=== PATIENT | male | born 2000 | race Caucasian/White ===

== ENCOUNTER 2019-01-03 20:16 | Emergency (ER) | payer BC, SELFPAY ==
[2019-01-03 20:30] VITALS: BP 117/79; PULSE 55; RESP 16; TEMP 36.6; O2SAT 98
--- NOTE | 2019-01-03 20:50 | W.ED.GENAD ---
Discharge Plan Disposition Patient Disposition: HOME Condition: Stable Discharge Details Chief Complaint: RespSymp Clinical Impression: Cough Primary Care Provider: Cleveland Marcos ED Provider: Buddy Correa Home Meds and New Rx's Prescriptions: New benzonatate [Tessalon Perles] 100 mg capsule 100 mg PO TID PRN (Reason: cough) Qty: 30 RF: 0 No Action methylphenidate HCl [Concerta] 54 MG tablet extended release 24hr 54 mg PO DAILY RF: 0 Discharge Instructions Instructions: Acute Cough (ED) Additional Instructions: follow up with your primary care provider within 1-2 weeks especially if symptoms continue if you feel more ill, are having high fevers or having difficulty breathing return to the emergency department for reevaluation Medical Decision Making 18 yo male who denies chronic medical problems comes in with primarily dry cough for 2 weeks. Denies fevers, chills, sob, recent travel. HE does smoke, denies other drug or alcohol use. On exam he is speaking in full sentences in no distress and appears well. He has clear lungs throughout with intermittent dry cough, clear rhinorrhea, normal oropharynx, midline uvula, no pain over hyoid and no restricted neck movements. N ofindings on hx or exam to suggest rpa, [employer], epiglotitis and given well appearance, afebrile and clear lungs do not feel chest xray, labs or abx indicated. Could be early sign of asthma so will have him trial inhaler and advised f/u with pcp, return precautions given Differential Diagnosis asthma, bronchitis, copd, pna, post nasal drip HPI General Mode of arrival: ambulatory. Date/Time Provider Initiated Documentation: 01/03/19 20:24. Limitations to Documentation: no limitations. Information obtained by: patient. History of Present Illness 18 year old M presents to the emergency department with the chief complaint of cough, described as mild, with intensity rated at 3. Patient started experiencing this week(s) (2) and it has been constant. No relieving factors improve symptom(s), No exacerbating factors reported . Patient notes no other symptoms.. Patient did receive the following treatments prior to arrival, none Related Data Home Medications Medication Instructions Recorded Confirmed methylphenidate HCl [Concerta] 54 mg PO DAILY 10/04/15 10/04/15 benzonatate [Tessalon Perles] 100 mg PO TID PRN #30 cap 01/03/19 Previous Rx's Medication Instructions Recorded benzonatate [Tessalon Perles] 100 mg PO TID PRN #30 cap 01/03/19 Allergies Allergy/AdvReac Type Severity Reaction Status Date / Time No Known Allergies Allergy Unverified 01/03/19 20:45 General Stated Complaint: RespSymp LINDA: 4 Review of Systems Review of Systems All systems reviewed & are unremarkable except as noted in HPI and below Constitutional Denies chills, Denies fever(s) and Denies weakness Eyes Denies loss of vision ENT Denies change in voice Cardiovascular Denies chest pain and Denies dyspnea Respiratory Denies dyspnea Gastrointestinal Denies abdominal pain, Denies nausea and Denies vomiting Musculoskeletal Denies joint swelling Integumentary/Breasts Denies rash Neurologic Denies loss of vision and Denies weakness Psychiatric Denies depression Endocrine Denies cold intolerance and Denies heat intolerance [facility] Social History Smoking and Tabacco status: Current-Occasional Exam Const General: no acute distress Orientation: alert HENMT Head: normal to inspection Ears: external ears normal General nose exam: external nose normal Mouth: moist mucous membranes Eyes General: appearance normal, both eyes and all related structures Neck Neck: normal visual inspection Resp Effort & Inspection: normal respiratory effort and able to speak in complete sentences Cardio Rate: regular rate Skin General skin exam: no rashes or lesions noted Neuro General: alert and oriented x3 Extrem General: normal to inspection Psych Mental Status: mental status grossly normal Course Vital Signs Temperature 36.6 C 01/03/19 20:30 Pulse 55 L 01/03/19 20:30 Respiratory Rate 16 01/03/19 20:30 Blood Pressure 117/79 01/03/19 20:30 Pulse Oximetry 98 01/03/19 20:30 Temperature 36.6 C 01/03/19 20:30 Temperature Source Temporal Artery Scan 01/03/19 20:30 Pulse 55 L 01/03/19 20:30 Respiratory Rate 16 01/03/19 20:30 Respiratory Effort 01/03/19 20:42 Respiratory Depth Normal 01/03/19 20:42 Blood Pressure 117/79 01/03/19 20:30 Pulse Oximetry 98 01/03/19 20:30 Oxygen Delivery Method Room Air 01/03/19 20:30 Oxygen Flow Rate 0 01/03/19 20:30 Pain Level 1 01/03/19 20:30 Comment 01/03/19 20:30
--- NOTE | 2019-01-03 20:53 | NUR.NOTE ---
Pertinent report given to Ana Courser RN, who assuming care of Buddy at this time.Nursing Note:
[2019-01-03] MEDS: Albuterol HFA 8 GM 60 PUFF INH IH (21:02)
[2019-01-03] MEDS: Inhaler, Assist Device 1 EACH MC (21:02)
== END 2019-01-03 21:03 | disposition home or self-care (01) ==
PROVIDERS: Emergency Provider Emergency Medicine; PCP Physician Assistant
DX: R05 Cough (principal); F17.210 Nicotine dependence, cigarettes, uncomplicated
CPT/HCPCS: 99283

== ENCOUNTER 2020-04-24 15:14 | Emergency (ER) | payer MEDICAID, SELFPAY ==
[2020-04-24 15:24] VITALS: BP 111/59; PULSE 51; RESP 16; TEMP 36.4; O2SAT 99
--- NOTE | 2020-04-24 15:26 | W.ED.GENAD ---
Discharge Plan Disposition Patient Disposition: HOME Condition: Stable Discharge Details Chief Complaint: PsychEval Clinical Impression: Behavior disturbance, Anxiety Primary Care Provider: Cleveland Marcos ED Provider: Leidy Rodriguez Home Meds and New Rx's Prescriptions: New hydroxyzine HCl 25 mg tablet 25 mg PO QID PRN (Reason: anxiety) Qty: 10 RF: 0 Discharge Instructions Instructions: Hydroxyzine (By mouth), Anxiety (ED) Additional Instructions: Drink plenty of fluids and get plenty of rest. Take the hydroxyzine as needed and directed for anxiety or sleep. Follow-up with your primary care doctor tomorrow regarding a follow-up appointment for reevaluation and for referral for counseling and/or medication management. You will receive a package in the mail from Kanchan from [facility] [employer] regarding follow-up with therapy or counseling. Return to the emergency department if you develop any worsening or new concerning symptoms. Discharge Data Discharge Date/Time-TO BE ENTERED AT DEPARTURE: 04/24/20 17:41 Discharge Physician: Leidy Rodriguez Medical Decision Making 19-year-old male with a history of anxiety and reactive attachment disorder presents for evaluation after an episode of anxiety and a behavior outburst at home today. No SI/HI. Patient appears calm and is able to provide history. His vitals are within normal limits and he appears nontoxic. No acute findings on exam. Father mainly requested assistance with reconnecting with outpatient counseling or therapy and for consideration of possibly restarting antianxiety medications. I do not see indication for any labs or imaging. Patient evaluated by Kanchan from [facility] through zoom at bedside. Patient cleared for discharge to home. Pt and father feel good with plan for home. Plan is to follow-up with the primary care doctor as well as give referrals to [facility] for counseling. Father also requested something to help with anxiety or sleep. Prescription for hydroxyzine given. Advised to follow up with the primary care doctor for re-evaluation. Usual and customary return precautions given prior to discharge. Medical Records Medical records reviewed: Yes I reviewed the patient's medical records. HPI General Mode of arrival: ambulatory. Date/Time Provider Initiated Documentation: 04/24/20 15:16. Limitations to Documentation: no limitations. Information obtained by: patient. HPI Narrative: Patient is a 19-year-old male with a history of anxiety and reactive attachment disorder who presents to the ED with a complaint of anxiety and a behavior outburst at home. Patient states that he became anxious after he could not contact his friends over the phone. 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 He states after this he became frustrated home and threw his phone and broke it and then punched a hole in a door at home. Father states he then threw himself to the ground a few times. Father states he brought patient here for evaluation and for help with restarting possible therapy or medication for his anxiety. Patient had been on buspirone in the past over 1 year ago but did not like the side effect of feeling a flat affect. Patient had also been on Concerta and Vyvanse in the past but this was several years ago. Patient counselor for help with his anxiety and any psychosocial issues but has not seen them for over a year. Patient states he smokes marijuana but states this is no different than usual and denies any other drug or alcohol use. He states he has poor sleep habits and often has trouble sleeping at night. He denies any injury today or recently. He also denies any recent illness. He denies any suicidal homicidal ideation, visual or auditory hallucinations. Related Data Home Medications Medication Instructions Recorded Confirmed hydroxyzine HCl 25 mg PO QID PRN #10 tab 04/24/20 Previous Rx's Medication Instructions Recorded hydroxyzine HCl 25 mg PO QID PRN #10 tab 04/24/20 Allergies Allergy/AdvReac Type Severity Reaction Status Date / Time buspirone AdvReac too sedated Unverified 04/24/20 15:37 General LINDA: 4 Review of Systems All systems reviewed & are unremarkable except as noted in HPI and below Constitutional Constitutional: Reports as per HPI, Denies chills and Denies fever(s) Eyes Eyes: Denies blurry vision ENT Ears, Nose, Mouth, and Throat: Denies dizziness, Denies sore throat and Denies throat swelling Cardiovascular Cardiovascular: Denies chest pain and Denies dyspnea Respiratory Respiratory: Denies cough and Denies dyspnea Gastrointestinal Gastrointestinal: Denies abdominal pain, Denies diarrhea and Denies vomiting Genitourinary Genitourinary: Denies hematuria and Denies dysuria Musculoskeletal Musculoskeletal: Denies back pain and Denies numbness Integumentary/Breasts Skin/Breast: Denies lesions and Denies rash Neurologic Neurologic: Denies dizziness, Denies localized weakness and Denies numbness Psychiatric Psychiatric: Reports abnormal sleep pattern and Reports anxiety Allergic/Immunologic Allergic/Immunologic: Denies throat swelling [facility] Medical History (Updated 04/24/20 @ 17:17 by Leidy Rodriguez DO) History of reactive attachment disorder (Acute) Surgical History (Updated 04/24/20 @ 16:58 by Leidy Rodriguez DO) No significant past surgical history (Acute) Social History Smoking/Tobacco Use Status: Current-Occasional Tobacco Type: cigarettes Alcohol Intake: never Drug use: Daily Substance use type: marijuana Do you feel safe at home: Yes Do you feel safe in your relationship?: Yes Exam Const General: cooperative, healthy appearing and no acute distress HENMT Head: normal to inspection Face and sinus: normal facial exam Eyes General: appearance normal, both eyes and all related structures Periorbital: periorbital findings normal Pupils: PERRL EOM: EOM intact bilaterally Neck Neck: normal visual inspection and No submandibular swelling Lymphatic: no lymphadenopathy noted Chest Chest: normal inspection of the chest and no tenderness Resp Effort & Inspection: normal respiratory effort and able to speak in complete sentences Auscultation: clear to auscultation bilaterally Cardio Rate: regular rate Rhythm: regular rhythm GI Inspection: normal to inspection Palpation: soft, not firm, not rigid and nontender Auscultation: normal bowel sounds Skin General skin exam: no rashes or lesions noted Neuro General: patient alert, patient awake and patient oriented x3 Cognition: normal cognition Speech: speech normal Motor: muscle tone normal throughout Sensory Exam: no sensory deficits noted Extrem General: normal to inspection, full ROM, capillary refill normal, no calf tenderness bilaterally and no edema Psych Appearance: grossly normal Mental Status: mental status grossly normal Speech and Movement: speech and movement normal Affect: normal affect
--- NOTE | 2020-04-24 17:12 | PDOC.MHCN_ITS ---
Date of service: 04/24/20 Time of Service: 17:12 Mental Health Crisis Note Presenting Issue How did you arrive at the ED and why did you come: Buddy arrived today via his father after he had what seemed like a tantrum and ended up punching a hole in the bathroom door and throwing himself on the floor banging his head. Precipitating Factors Buddy denied SI and HI. He does not appear to have any signs of delusions. Disposition BEHAVIOR: Buddy is cooperative and engaged in the interview. He was a little unsure at times while doing his intake and then his assessment so even though he had asked dad to step out he would call him back in. Doc is feeling anxious more lately and when this happens he said his stomach will hurt. EYE CONTACT: Buddy's eye contact is consistent and normal. MOOD: Buddy presents with what appears to be a normal mood at the ER even though he reports it was not normal prior requiring him to come to the ER. AFFECT: Buddy's affect is normal. APPETITE: Buddy reported a decrease in his appetite. SLEEP(trouble falling/staying asleep: Buddy reported that he sleeps all day and is up all night. Plan Buddy and dad will call [facility] in the am as will this clinician. Buddy is seeking a care home counselor and feels he did not connect with the one at [facility]. He also is interested in a PRN anxiety medication to help when he starts to escalate in anxious symptoms. We discussed maybe he could see another counselor in a different office while he seeks a keno terminal operator counselor and that maybe his PCP will discuss medication options. This clinician will mail [facility] list of Counselors in the are for them to review and outreach to. Signature Clinician's Name/Title: Kanchan Sevilla MS, [facility] Emergency Services Clinician
== END 2020-04-24 17:41 | disposition home or self-care (01) ==
PROVIDERS: Emergency Provider Physician Assistant; PCP Physician Assistant
DX: F91.9 Conduct disorder, unspecified (principal); F12.10 Cannabis abuse, uncomplicated; F94.1 Reactive attachment disorder of childhood
CPT/HCPCS: 99283

== ENCOUNTER 2021-02-08 17:57 | Emergency (ER) | payer BC, MEDICAID, SELFPAY ==
[2021-02-08 18:18] VITALS: BP 110/62; PULSE 54; RESP 16; TEMP 36.7; O2SAT 100
--- NOTE | 2021-02-08 19:39 | W.ED.GENAD ---
Discharge Plan Disposition Patient Disposition: HOME Condition: Good Discharge Details Clinical Impression: Chin laceration Primary Care Provider: Cleveland Marcos ED Provider: Sindhu Eagle Home Meds and New Rx's Prescriptions: No Action No Known Home Meds RF: 0 Discharge Instructions Instructions: Laceration (ED) Additional Instructions: Suture removal in 7 days Keep clean and dry Return with spreading redness, fever, worsening pain Ibuprofen and Tylenol for fever control Keep dry for 24 Discharge Data Discharge Date/Time-TO BE ENTERED AT DEPARTURE: 02/08/21 19:55 Medical Decision Making No clinical evidence of fracture, range of motion intact in all directions, no palpable intraoral pathology Tolerated suture placement without incident Tetanus reportedly up-to-date Return precautions and patient expressed understanding Suture management 7 days recommended Differential Diagnosis Differential Diagnosis: Jaw fracture, laceration, concussion, abrasion Medical Records Medical records reviewed: Yes I reviewed the patient's medical records. Lab Data Lab results reviewed: Yes I reviewed the patient's lab results. HPI This 20-year-old male presents with laceration to his chin. He states he was smoking tobacco froma humidified tobacco device when he became lightheaded and fell. He hit his chin on the floor. He denies loss of consciousness. He states that he acquired a laceration to his chin. He denies any neck pain, chest pain, shortness of breath. He denies any current dizziness. He is otherwise healthy and denies anticoagulation. General Date/Time Provider Initiated Documentation: 02/08/21 18:50. Related Data Home Medications Medication Instructions Recorded Confirmed Unknown [No Known Home Meds] 02/08/21 02/08/21 Allergies Allergy/AdvReac Type Severity Reaction Status Date / Time buspirone AdvReac too sedated Unverified 04/24/20 15:37 General Stated Complaint: Laceration LINDA: 4 Review of Systems Narrative: Review of systems obtained x7 aside from where indicated in HPI [facility] Medical History (Updated 02/08/21 @ 19:40 by CARMELO Velazquez) History of reactive attachment disorder Surgical History (Updated 04/24/20 @ 16:58 by Leidy Rodriguez DO) No significant past surgical history Social History Smoking/Tobacco Use Status: Current-Occasional Tobacco Type: cigarettes Smoking risk assessment performed?: Yes Alcohol Intake: never Drug use: Daily Substance use type: marijuana Do you feel safe at home: Yes Do you feel safe in your relationship?: Yes Exam Const General: cooperative and no acute distress HENMT Head: no palpable skull fracture Other: Range of motion intact, no jaw tenderness No palpable fracture, no injury to tongue Obvious 2 inch laceration to chin Eyes Pupils: PERRL Neck Other: No midline tenderness Chest Chest: normal inspection of the chest Skin Other: Laceration noted to chin Neuro General: patient alert and patient oriented x3 Cranial Nerves: CN's II-XI intact bilaterally Other: GCS 15 Course Vital Signs Vital signs: Vital Signs Temperature 36.7 C 02/08/21 18:18 Pulse 54 L 02/08/21 18:18 Respiratory Rate 16 02/08/21 18:18 Blood Pressure 110/62 02/08/21 18:18 Pulse Oximetry 100 02/08/21 18:18 Temperature 36.7 C 02/08/21 18:18 Temperature Source Skin 02/08/21 18:18 Pulse 54 L 02/08/21 18:18 Respiratory Rate 16 02/08/21 18:18 Respiratory Effort 02/08/21 18:22 Blood Pressure 110/62 02/08/21 18:18 Blood Pressure Position Sitting 02/08/21 18:18 Pulse Oximetry 100 02/08/21 18:18 Oxygen Delivery Method Room Air 02/08/21 18:18 Oxygen Flow Rate 0 02/08/21 18:18 Pain Level 2 02/08/21 18:18 Procedures Laceration Laceration 1: Site: face Size (cm): 5 Description: linear Depth: simple, single layer Local Anesthetic: Lidocaine 2% Amount of anesthesia used (mL): 5 Pre-repair: wound explored Skin layer closed with: nylon Size (cm): 5-0 Number of sutures: 13 Technique: simple, interrupted Subcutaneous layer closed with: vicryl Size: 5-0 Number of sutures: 6 Technique: running
== END 2021-02-08 19:55 | disposition home or self-care (01) ==
PROVIDERS: Emergency Provider Physician Assistant; PCP Physician Assistant
DX: S01.81XA Laceration without foreign body of other part of head, initial encounter (principal); W01.198A Fall on same level from slipping, tripping and stumbling with subsequent striking against other object, initial encounter
CPT/HCPCS: 12013

== ENCOUNTER 2021-02-14 22:23 | Emergency (ER) | payer BC, MEDICAID, SELFPAY ==
[2021-02-14] VITALS (8 sets, daily range): BP systolic 103–126; BP diastolic 57–77; PULSE 88–105; RESP 12–19; TEMP 36.7; O2SAT 98–100
--- NOTE | 2021-02-14 22:15 | RT.EKG_ITS ---
APPROVED REPORT Exam: Resting ECG Patient Location: E HR:103 bpm ECG Measurements Heart Rate 103 AXIS MD 173 P 54 QRSd 116 QRS 127 QT 363 T 43 QTc 475 Conclusion Sinus tachycardia...rate> 99 Nonspecific intraventricular conduction delay...QRSd >115mS, not LBBB/RBBB ST elev, probable normal early repol pattern...ST elevation, age<55
--- NOTE | 2021-02-14 22:24 | W.ED.GENAD ---
Discharge Plan Disposition Patient Disposition: HOME Condition: Stable Discharge Details Clinical Impression: Syncope Primary Care Provider: Cleveland Marcos ED Provider: Zaida Esposito Home Meds and New Rx's Prescriptions: No Action No Known Home Meds RF: 0 Discharge Instructions Instructions: Syncope (ED) Additional Instructions: Your labs and EKG are reassuring here today. Please stop smoking marijuana. Try to eat more regularly and a well-balanced diet. Please follow-up with your primary care next week for reevaluation. If you develop any new or worsening symptoms please seek care urgently once again. Referrals: Cleveland Marcos [Primary Care Provider] - Medical Decision Making Patient is a 20-year-old male presenting today with syncope. Patient was seen here 6 days ago after having suffered a syncopal episode. At that time, he had struck his chin and needed stitches to laceration. He reports that both times they patient had smoked from a bong. Reports that after this he suffered dizziness and subsequent syncopal episode. Denies episode occurred approximately 45 minutes after smoking. States that he was seated at the time of the incident. Did not fall or strike his head. Denies any trauma today. No fevers or chills. Denies any chest pain. States that after he smokes he can feel that his heart is racing. Feels that he is having the symptoms currently. He denies any shortness of breath. Patient also reports that he has had significant weight loss over the past year. He attributes this to poor eating habits On exam, patient appears anxious but nontoxic. Normal neurological exam. Normal cardiac exam with no murmurs rubs or gallops appreciated on auscultation. Lungs are clear. Plan to obtain ECG. As this was a second time patient had a syncopal episode in the past week, I do feel that further evaluation is warranted at this time. ECG was reviewed by Dr. Barton. No acute ischemic changes noted. Patient is tachycardic with a heart rate of 103. EKG is not consistent with WPW, Brugada's, dysrhythmia interval disruption. Labs reviewed. White count slightly elevated 11.6. I see no evidence to suggest infection on exam or history. Stable H&H. D-dimer within normal limits. CMP significant for glucose of 144. Magnesium is low at 7. Bili 1.8. Troponin within normal limits. Thyroid within normal limits. I discussed these findings with the patient as well as his father. At this time, I see no emergent cause of his syncope. Rather, I suspect this associated with smoking, particularly as it is happened twice now. I advised cessation from this. Patient reports that he has severe anxiety. Advised that he continue with his counseling and encourage close follow-up with primary care. Father and I discussed disposition. Patient still lives with them and he feels the patient would best be served by discharge and sleeping it off. Patient continues to be hemodynamically stable. He slept most of the time he was here. Appears to be in no acute distress. Return precautions were discussed. They will call primary care Wednesday to schedule prompt follow-up. All his questions and concerns were addressed and he is in agreement with this plan. HPI General Mode of arrival: ambulatory. Date/Time Provider Initiated Documentation: 02/14/21 22:24. Limitations to Documentation: no limitations. Information obtained by: patient, RN notes reviewed and old records reviewed. History of Present Illness 20 year old M presents to the emergency department with the chief complaint of syncope, described as similar to prior episodes (similar episode 1 week ago), Quality is described as other (reports abdominal discomfort associated with hunger), and is localized to the abdomen. Patient reports no radiation. Patient started experiencing this minute(s) and it has been constant. No relieving factors improve symptom(s), Other factors that worsen symptoms (both episodes occured after smoking from bon) . Patient notes syncope and other (reports significant weight loss); denies confusion, chest pain, cough, fever/chills, loss of appetite, nausea/vomiting, shortness of breath and weakness. Patient did receive the following treatments prior to arrival, none Related Data Home Medications Medication Instructions Recorded Confirmed Unknown [No Known Home Meds] 02/08/21 02/14/21 Allergies Allergy/AdvReac Type Severity Reaction Status Date / Time buspirone AdvReac too sedated Unverified 02/14/21 22:53 General LINDA: 4 Review of Systems Constitutional Constitutional: Reports as per HPI, Denies chills, Denies fever(s), Denies headache(s), Denies lethargy, Reports poor appetite and Reports weight loss Eyes Eyes: Denies change in vision ENT Ears, Nose, Mouth, and Throat: Reports dizziness and Denies headache(s) Cardiovascular Cardiovascular: Reports as per HPI, Reports syncope, Denies dyspnea and Denies dyspnea on exertion Respiratory Respiratory: Reports as per HPI, Denies chest congestion, Denies cough, Denies pain on inspiration, Denies pain with cough, Denies dyspnea, Denies dyspnea on exertion and Denies wheezing Gastrointestinal Gastrointestinal: Reports as per HPI, Denies abdominal pain, Denies diarrhea, Denies nausea and Denies vomiting Genitourinary Genitourinary: Denies system reviewed and no additional complaints, except as documented (denies change in urinary habits) Musculoskeletal Musculoskeletal: Reports as per HPI and Denies back pain Integumentary/Breasts Skin/Breast: Reports as per HPI and Denies rash Neurologic Neurologic: Reports as per HPI, Reports dizziness, Reports syncope and Denies headache(s) Allergic/Immunologic Allergic/Immunologic: Denies wheezing [facility] Medical History History of reactive attachment disorder Surgical History No significant past surgical history Social History Smoking/Tobacco Use Status: Current-Occasional Tobacco Type: cigarettes Smoking risk assessment performed?: Yes Alcohol Intake: never Drug use: Daily Substance use type: marijuana Do you feel safe at home: Yes Do you feel safe in your relationship?: Yes Exam Const General: cooperative, healthy appearing, comfortable, no acute distress and well developed Nutritional Appearance: average body habitus and well nourished Orientation: alert, awake and oriented x3 HENMT Head: normal to inspection Ears: hearing grossly normal bilaterally Face and sinus: normal facial exam (wound on chin healing well) Mouth: oral mucosae normal and moist mucous membranes Throat: posterior oropharynx normal Resp Effort & Inspection: normal respiratory effort, able to speak in complete sentences and no respiratory distress Auscultation: clear to auscultation bilaterally, no rales, no rhonchi and no wheezes Cardio Rate: regular rate Rhythm: regular rhythm Heart Sounds: S1 normal and S2 normal GI Inspection: normal to inspection, no edema and non-distended Palpation: soft, no hepatosplenomegaly, not firm, no guarding, not rigid and nontender Auscultation: normal bowel sounds Skin General skin exam: no rashes or lesions noted Trauma: no lacerations or abrasions Neuro General: patient alert, patient awake and patient oriented x3 Cognition: normal cognition Speech: speech normal Gait: normal gait Motor: muscle tone normal throughout, strength 5/5 throughout, no pronator drift, no movement abnormalities noted and no fasciculations Extrem General: normal to inspection, capillary refill normal, no pedal edema, no calf tenderness and normal gait Psych Appearance: grossly normal and well kempt Mental Status: mental status grossly normal Speech and Movement: speech and movement normal Mood: congruent mood Affect: anxious affect Attitude: cooperative Thought Process: normal Thought Content: normal
[2021-02-14] MEDS: Normal Saline 1,000 ML 1000 ML IV (23:17)
[2021-02-14 23:18] LABS: Abs Immature Grans 0.06 10^3/uL (0.0-0.06); Absolute Basophil Count 0.05 10^3/uL (0.0-0.2); Absolute Eosinophil Count 0.09 10^3/uL (0.0-0.7); Absolute Monocyte Count 0.54 10^3/uL (0.1-0.8); Absolute Neutrophil Count 9.03 10^3/uL (1.2-6.7); Basophils % 0.4; Eosinophils % 0.8; HCT 43.4 % (40.0-50.0); HGB 14.7 g/dL (13.5-17.5); Immature Grans % 0.5; Lymphocytes % 16.3; MCH 30.6 pg (27.0-33.0); MCHC 33.9 % (32.0-36.0); MCV 90.2 fL (80-95); MPV 10.5 fL (8.0-11.0); Monocytes % 4.6; Neutrophils % 77.4; Nucleated RBC 0 %; Platelet Count 260 10^3/uL (130-400); RBC 4.81 10^6/uL (4.36-5.78); RDW 12.2 % (11.8-14.1); RDW-SD 40.5 fL; WBC 11.67 10^3/uL (4.4-10.8)
[2021-02-14 23:35] LABS: ALT 15 U/L (16-63); AST 15 U/L (15-37); Albumin 4.6 g/dL (3.4-5.0); Alkaline Phosphatase 66 U/L (46-116); Anion Gap 9.7 mmol/L (3-11); BUN 16 mg/dL (7-18); Bilirubin, Total 1.8 mg/dL (0.2-1.0); CO2 27.3 mmol/L (21.0-32.0); CREATININE 1.1 mg/dL (0.70-1.30); Calcium 9.4 mg/dL (8.5-10.1); Chloride 103 mmol/L (98-107); Glucose 144 mg/dL (74-106); Sodium 140 mmol/L (136-145); Total Protein 7.9 g/dL (6.4-8.2)
[2021-02-14 23:36] LABS: INR 1.2 (0.9-1.1); PTT Activated 21.4 sec (21.0-27.5); Prothrombin Time 11.7 sec (9.3-11.0); Troponin I < 0.05 ng/mL (<0.06)
[2021-02-14 23:43] LABS: Magnesium 1.7 mg/dL (1.8-2.4); TSH 0.52 uIU/mL (0.36-3.74)
[2021-02-14 23:48] LABS: D-Dimer 405 ng/mlFEU (<500)
[2021-02-15 00:19] VITALS: BP 126/77; PULSE 95; RESP 14; TEMP 36.7; O2SAT 100
== END 2021-02-15 00:15 | disposition home or self-care (01) ==
PROVIDERS: Emergency Provider Physician Assistant; PCP Physician Assistant
DX: R55 Syncope and collapse (principal); E83.42 Hypomagnesemia; T40.7X5A Adverse effect of cannabis (derivatives), initial encounter; F12.10 Cannabis abuse, uncomplicated
CPT/HCPCS: 36415; 80053; 93005; 96360; 99284; 83735; 84443; 84484; 85025; 85379; 85610; 85730; 93010; 99285

== ENCOUNTER 2021-04-25 12:32 | Outpatient (REF) | payer MEDICAID, SELFPAY ==
[2021-04-25 14:24] LABS: Abs Immature Grans 0.01 10^3/uL (0.0-0.06); Absolute Basophil Count 0.02 10^3/uL (0.0-0.2); Absolute Eosinophil Count 0.02 10^3/uL (0.0-0.7); Absolute Lymphocyte Count 0.79 10^3/uL (1.2-3.4); Absolute Monocyte Count 0.52 10^3/uL (0.1-0.8); Absolute Neutrophil Count 4.49 10^3/uL (1.2-6.7); Basophils % 0.3; Eosinophils % 0.3; HCT 41.6 % (40.0-50.0); HGB 13.8 g/dL (13.5-17.5); Immature Grans % 0.2; Lymphocytes % 13.5; MCH 29.3 pg (27.0-33.0); MCHC 33.2 % (32.0-36.0); MCV 88.3 fL (80-95); MPV 12.1 fL (8.0-11.0); Monocytes % 8.9; Neutrophils % 76.8; Nucleated RBC 0 %; Platelet Count 111 10^3/uL (130-400); RBC 4.71 10^6/uL (4.36-5.78); RDW 12.4 % (11.8-14.1); RDW-SD 40.6 fL; WBC 5.85 10^3/uL (4.4-10.8)
[2021-04-25 14:39] LABS: ALT 68 U/L (16-63); AST 44 U/L (15-37); Alkaline Phosphatase 86 U/L (46-116); Anion Gap 8.3 mmol/L (3-11); BUN 15 mg/dL (7-18); CO2 30.7 mmol/L (21.0-32.0); Chloride 100 mmol/L (98-107); Glucose 97 mg/dL (74-106); Potassium 4.2 mmol/L (3.5-5.1); Sodium 139 mmol/L (136-145); Total Protein 7.2 g/dL (6.4-8.2)
[2021-04-26 14:12] LABS: COVID-19 RT-PCR UVMMC Result Negative (Negative)
== END 2021-04-25 12:33 | disposition home or self-care (01) ==
LOC: NCHCN 12:32
PROVIDERS: PCP Physician Assistant; Visit Provider Family Medicine
DX: R50.9 Fever, unspecified (principal); Z20.822 Contact with and (suspected) exposure to COVID-19
CPT/HCPCS: 80053; U0003; 85025

== ENCOUNTER 2021-05-05 16:27 | Outpatient (REF) | payer MEDICAID, SELFPAY ==
[2021-05-07 13:27] LABS: Lyme Ab w Rflx to Lyme Confirm Positive (Negative)
[2021-05-08 07:36] LABS: Anaplasma phagocytophilum Negative (Negative); B. miyamotoi PCR Negative (Negative); Babesia divergens/MO-1 Negative (Negative); Babesia duncani Negative (Negative); Babesia microti Negative (Negative); Ehrlichia chaffeensis Negative (Negative); Ehrlichia ewingii/canis Negative (Negative); Ehrlichia muris eauclairensis Negative (Negative)
[2021-05-08 16:04] LABS: IgG Band(s) p41; IgG Immunoblot Negative (Negative); IgM Band(s) p41; IgM Immunoblot Positive (Negative)
== END 2021-05-05 16:28 | disposition home or self-care (01) ==
LOC: NCHCN 16:27
PROVIDERS: PCP Physician Assistant; Visit Provider Family Medicine
DX: G51.0 Bell's palsy (principal)
CPT/HCPCS: 86617; 87798; 86618

== ENCOUNTER 2021-07-15 16:13 | Outpatient (REF) | payer MEDICAID, SELFPAY ==
[2021-07-17 15:06] LABS: Chlamydia Result Negative (Negative); GC Result Negative (Negative)
== END 2021-07-15 16:14 | disposition home or self-care (01) ==
LOC: NCHCN 16:13
PROVIDERS: PCP Physician Assistant; Visit Provider Nurse Practitioner Family
DX: Z11.3 Encounter for screening for infections with a predominantly sexual mode of transmission (principal)
CPT/HCPCS: 87491; 87591

== ENCOUNTER 2023-06-27 15:59 | Emergency (ER) | payer MEDICAID, SELFPAY ==
--- NOTE | 2023-06-27 16:00 | RT.EKG_ITS ---
APPROVED REPORT Exam: Resting ECG Reason for Exam: chest pain Patient Location: E HR:77 bpm ECG Measurements Heart Rate 77 AXIS NC 158 P 1 QRSd 98 QRS 146 QT 389 T 54 QTc 440 Conclusion Sinus rhythm...normal P axis, V-rate 60- 99 Right axis deviation...QRS axis (111,269) ST elev, probable normal early repol pattern...ST elevation, age<55
[2023-06-27 16:02] VITALS: BP 129/58; PULSE 81; RESP 19; TEMP 38.5; O2SAT 98
[2023-06-27 16:14] LABS: Source Nasopharynx
[2023-06-27 16:44] LABS: COVID-19 PCR Negative (Negative)
--- NOTE | 2023-06-27 16:52 | DI.RAD_ITS ---
Exam(s) XR CHEST 2V PA LATERAL EXAM: XR CHEST 2V PA LATERAL CLINICAL HISTORY: cough, fever, right chest pain TECHNIQUE: 2D digital imaging was performed of the chest. Two images were obtained. PA and lateral views were obtained. COMPARISON: No exams were available for comparison FINDINGS: MEDIASTINUM: Normal. HEART: Normal. PULMONARY VASCULATURE: Normal. LUNGS: Prominent perihilar interstitial markings with peribronchial thickening. No focal consolidati on. PLEURAL SPACE: No pleural effusion or pneumothorax. BONE:Within normal limits for the patient's age. OTHER FINDINGS:Normal. IMPRESSION: 1. Prominent interstitial markings and peribronchial thickening which can be seen with a viral pneumo ivan/bronchitis. 2. No focal consolidation. DATA REPOSITORY: RADIATION DOSE DELIVERED:
--- NOTE | 2023-06-27 17:12 | ED.GENADUL_ITS ---
Discharge Plan Disposition Patient Disposition: Home Condition: Stable Discharge Details Clinical Impression: Pneumonia Primary Care Provider: Cleveland Marcos ED Provider: Felice Barton Home Meds and New Rx's Prescriptions: New doxycycline hyclate 100 mg tablet 100 mg PO BID Qty: 15 0RF Discharge Instructions Instructions: Doxycycline (By mouth), Pneumonia (ED) Additional Instructions: Please take ibuprofen over the counter. Take 600mg by mouth every 6 hours as needed for pain. Please take acetaminophen (tylenol) - 650mg every 6 hours by mouth as needed for pain. Please take full course of antibiotic as prescribed. Drink plenty of fluid to stay hydrated and allow for plenty of rest. Please stop smoking. Please contact your primary care physician to arrange follow-up. Return to the ER immediately for any worsening or new concerning symptoms. Referrals: Cleveland Marcos [Primary Care Provider] - Medical Decision Making 22-year-old male here with productive cough over the past 1 week with associated right-sided chest discomfort over the past 4 to 5 days. Patient is febrile. Patient is saturating well in no respiratory distress. Patient has rales over right middle lobe. Considered COVID. Rapid COVID test negative. PCR negative. Suspect community-acquired pneumonia. Plan to treat with doxycycline. Initial dose provided here as well as dosing for tomorrow as pharmacy closed. Chest x-ray was reviewed and interpreted by radiology: Prominent increased perihilar interstitial markings with peribronchial thickening seen with viral pneumonia or bronchitis. Patient is a smoker. We discussed smoking cessation and he is motivated to stop. I recommended rest and staying well-hydrated. Patient was encouraged to follow- up with primary care physician. Usual customary discharge instructions were reviewed. HPI General Mode of arrival: ambulatory . Date/Time Provider Initiated Documentation: 06/27/23 16:03 . Limitations to Documentation: no limitations . Information obtained by: patient . HPI Narrative: 22-year-old male smoker presents with chief complaint of cough. Patient notes productive cough over the past 1 week. He has associated right-sided chest discomfort over the past 4 days. Cough is moderate productive of yellow sputum. He has associated fever. Related Data Home Medications Medication Instructions Recorded Confirmed doxycycline hyclate 100 mg tablet 100 mg PO BID #15 tabs 06/27/23 Previous Rx's Medication Instructions Recorded doxycycline hyclate 100 mg tablet 100 mg PO BID #15 tabs 06/27/23 Allergies Allergy/AdvReac Type Severity Reaction Status Date / Time buspirone AdvReac too sedated Unverified 02/14/21 22:53 General Stated Complaint: Chest/Rib LINDA: 3 Review of Systems All systems reviewed & are unremarkable except as noted in HPI and below Constitutional Constitutional: Reports fever(s) Respiratory Respiratory: Reports cough PFSH All Active Problems Chin laceration (Acute) Syncope (Chronic) Pneumonia (Acute) Medical History History of reactive attachment disorder Surgical History No significant past surgical history Social History Smoking/Tobacco Use Status: Current-Occasional Tobacco Type: cigarettes Smoking risk assessment performed?: Yes Alcohol Intake: never Drug use: Daily Substance use type: marijuana Do you feel safe at home: Yes Do you feel safe in your relationship?: Yes Exam Const General: cooperative and no acute distress HENMT Mouth: moist mucous membranes Throat: posterior oropharynx normal Eyes Conjunctivae: normal conjunctivae Sclera: normal sclerae Neck Neck: trachea midline and supple Chest Chest: no crepitus and no tenderness Resp Effort & Inspection: able to speak in complete sentences, cough, not labored and not tachypneic Auscultation: rales on the right in the mid lung madsen, rhonchi and no wheezes Cardio Rate: regular rate and not tachycardic Rhythm: regular rhythm GI Palpation: soft, not firm, no guarding, no masses, not rigid and nontender Skin General skin exam: no rashes or lesions noted Neuro General: patient alert, patient awake and tone normal Course Vital Signs Vital signs: Vital Signs Temperature 38.5 C H 06/27/23 16:02 Pulse 81 06/27/23 16:02 Respiratory Rate 06/27/23 16:02 Blood Pressure 129/58 L 06/27/23 16:02 Pulse Oximetry 98 06/27/23 16:02 Temperature 38.5 C H 06/27/23 16:02 Temperature Source Temporal Artery Scan 06/27/23 16:02 Pulse 81 06/27/23 16:02 Respiratory Rate 19 06/27/23 16:02 Blood Pressure 129/58 L 06/27/23 16:02 Blood Pressure Position Sitting 06/27/23 16:02 Pulse Oximetry 98 06/27/23 16:02 Oxygen Delivery Method Room Air 06/27/23 16:02 Oxygen Flow Rate 0 06/27/23 16:02 Pain Level 8 06/27/23 16:02 Lab/Test Results Lab/Test Results: Laboratory Tests Range/Units 06/27/23 16:11 COVID-19 Source Nasopharynx SARS-CoV-2 (PCR) (Negative) Negative
--- NOTE | 2023-06-27 17:13 | DI.VRAD_ITS ---
PROCEDURE INFORMATION: Exam: XR Chest Exam date and time: 06/27/2023 4:44 PM Age: 22 years old Clinical indication: Cough and fever; Chest pressure; Patient HX: Cough, fever, right chest pain TECHNIQUE: Imaging protocol: Radiologic exam of the chest. Views: 2 views. COMPARISON: No relevant prior studies available. FINDINGS: Lungs: Prominent perihilar markings with peribronchial thickening and increased central interstitial markings. No focal consolidation. Pleural spaces: Unremarkable. No pleural effusion. No pneumothorax. Heart/Mediastinum: Unremarkable. No cardiomegaly. Bones/joints: Unremarkable for patient's age. IMPRESSION: Prominent increased perihilar and interstitial markings with peribronchial thickening seen with viral pneumonia or bronchitis. Dictated and Authenticated by: Klaudia De La Rosa MD. Ordering:SRAVAN Viveros MD
[2023-06-27] MEDS: Doxycycline Hyclate 100 MG CAP PO (17:24)
[2023-06-27] MEDS: Doxycycline Hyclate 100 MG, 2 CAPS/BTL PO (17:24)
[2023-06-27 17:30] VITALS: PULSE 85; O2SAT 97
[2023-06-27 17:39] VITALS: BP 120/85; PULSE 86
[2023-06-27] MEDS: Acetaminophen 325 MG TAB (17:43)
[2023-06-27] MEDS: Ibuprofen 600 MG TAB (17:43)
--- NOTE | 2023-06-27 17:43 | NUR.NOTE ---
Nursing Note: MD Rivas placed verbal order for tylenol 650mg and Ibuprofen 600mg. Both meds pulled by override and given prior to d/c.
== END 2023-06-27 17:44 | disposition home or self-care (01) ==
PROVIDERS: Emergency Provider Student in an Organized Health Care Education/Training Program; PCP Physician Assistant
DX: J18.9 Pneumonia, unspecified organism; F17.200 Nicotine dependence, unspecified, uncomplicated
CPT/HCPCS: 87426; 87635; 93005; 99285; 71046; 93010; 99284